=== PATIENT | male | born 1985 | race Caucasian/White ===

== ENCOUNTER 2021-06-08 16:59 | Emergency (ER) | payer OTHER, SELFPAY ==
[2021-06-08] VITALS (14 sets, daily range): BP systolic 98–183; BP diastolic 53–85; PULSE 73–111; RESP 15–25; TEMP 36.7–36.8; O2SAT 96–100
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
[2021-06-08] MEDS: SODIUM CHLORIDE 0.9% IV 1,000 ML 999 ML (18:35)
[2021-06-08] MEDS: SODIUM CHLORIDE 0.9% IV 1,000 ML 999 ML IV CONT ×2 (19:34→22:09)
[2021-06-08] MEDS: TETANUS,DIPHTHERIA,AC PERTUSSIS ADULT (0.5 ML) BOOSTRIX IM (19:36)
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
--- NOTE | 2021-06-09 | PC.NURSE ---
[facility], pt tolerates well.
--- NOTE | 2021-06-09 00:50 | PC.NURSE ---
Attempt made to contact pt older sister Yesenia ([phone]) and mother (listed as person to notify) unsuccessful.
[2021-06-09 01:20] VITALS: BP 108/80; PULSE 102; RESP 18; O2SAT 100
== END 2021-06-09 01:45 | disposition home or self-care (01) ==
PROVIDERS: Emergency Provider General Practice
DX: S02.31XA Fracture of orbital floor, right side, initial encounter for closed fracture (principal); Z23 Encounter for immunization; Y04.2XXA Assault by strike against or bumped into by another person, initial encounter; F17.210 Nicotine dependence, cigarettes, uncomplicated
CPT/HCPCS: 70450; 70486; 71046; 72125; 90471; 90715; 96360; 96361; 99284; J7030

== ENCOUNTER 2023-04-11 22:10 | Emergency (ER) | payer OTHER, SELFPAY ==
[2023-04-11] VITALS (7 sets, daily range): BP systolic 123–149; BP diastolic 83–96; PULSE 78–101; RESP 13–24; TEMP 36.7; O2SAT 96–99
--- NOTE | 2023-04-11 23:00 | PC.NURSE ---
Assumed care of pt. at this time. Report from SESAR Smith
--- NOTE | 2023-04-11 23:15 | PC.NURSE ---
gave report and care to SESAR Diaz. all questions answered.
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
[2023-04-12] MEDS: SODIUM CHLORIDE 0.9% IV 1,000 ML 999 ML IV CONT ×2 (00:25→02:09)
[2023-04-12 00:34] LABS: Basophils Absolute Auto 0.1 K/mm3 (0.0-0.1); Basophils Percent Auto 1.3 % (0.2-1.2); Eosinophils Absolute Auto 0.1 K/mm3 (0-0.3); Eosinophils Percent Auto 2.4 % (0-4.4); Hematocrit 39.7 % (42.0-52.0); Hemoglobin 13.6 g/dL (14.0-18.0); Immature Granulocyte Absolute 0.01 K/mm3 (0.00-0.031); Immature Granulocyte Percent A 0.3 % (0-0.5); Lymphocytes Absolute Auto 1.52 K/mm3 (0.9-3.2); Lymphocytes Percent Auto 40.8 % (18.3-44.2); Mean Corpuscular HGB Conc 34.3 g/dl (32-36); Mean Corpuscular Hemoglobin 34.3 pg (26-34); Mean Platelet Volume 8.8 fl (7.4-10.4); Monocytes Absolute Auto 0.6 K/mm3 (0.1-0.6); Monocytes Percent Auto 16.4 % (2.6-8.5); Neutrophils Absolute Auto 1.5 K/mm3 (1.3-6.7); Neutrophils Percent Auto 38.8 % (45.5-73.1); Platelet Count Result 176 k/mm3 (150-375); Red Blood Count 3.97 M/mm3 (4.6-6.20); White Blood Count 3.7 K/mm3 (4.5-10.0)
[2023-04-12 00:41] LABS: Appearance Urine Clear (Clear); Bacteria Urine None Seen /hpf; Bilirubin Urine Negative (Negative); Blood Urine Negative (Negative); Color Urine Yellow (Yellow); Glucose Urine UA Negative (Negative); Ketones Urine Negative (Negative); Leukocyte Esterase Ur Negative LEU/UL (Negative); Nitrate Urine Negative (Negative); Non Pathogenic Casts 0-2; Protein Urine Trace mg/dL (Negative); RBC Urine 0-2 /hpf (0-2); Specific Grav Ur 1.009 (1.001-1.035); Squamous Epithelial Cell Urine None seen /hpf (Few); Urobilinogen Urine 0.2 mg/dL (<2.0); WBC Urine 0-5 /hpf
[2023-04-12 00:42] LABS: Add Urine Microscopic? YES
[2023-04-12 00:45] LABS: Alanine Aminotransferase 75 U/L (6-50); Albumin Level 3.8 g/dL (3.5-5.1); Alkaline Phosphatase 96 U/L (38-126); Anion Gap 13 mmol/L (8-16); Aspartate Amino Transferase 171 U/L (17-59); Bilirubin,Total 0.5 mg/dL (0.2-1.3); Blood Urea Nitrogen 6 mg/dL (9-20); Calcium 8.3 mg/dL (8.4-10.2); Carbon Dioxide 29 mmol/L (22-30); Chloride 103 mmol/L (98-107); Estimated CRCL calculation 123 ml/min; Estimated Glomerular Filt Rate > 60; Glucose 92 mg/dL (65-110); Potassium 3.8 mmol/L (3.4-5.0); Sodium 145 mmol/L (137-145)
[2023-04-12 00:51] LABS: Amphetamine Screen Urine Negative (Negative); Barbiturate Screen Urine Negative (Negative); Benzodiazepines Screen Urine Negative (Negative); Cannabinoid Screen Urine Positive (Negative); Cocaine Screen Urine Positive (Negative); Methadone Screen Urine Negative (Negative); Opiate Screen Urine Negative (Negative); Phencyclidine Screen Urine Negative (Negative)
--- NOTE | 2023-04-12 00:57 | ECG_ITS ---
Measurements Intervals Rohwer Rate: 74 P: 72 NV: 150 QRS: 79 QRSD: 96 T: 67 QT: 407 QTc: 453 Interpretive Statements SINUS RHYTHM BASELINE ARTIFACT- V3 NORMAL ECG COMPARED TO ECG 07/19/2018 16:19:44 SINUS RHYTHM NOW PRESENT Electronically Signed On 04-12-2023 7:31:35 METAL SORTER by Mitul Herndon D.O.
[2023-04-12 01:09] LABS: Ethanol 452 mg/dL (<10)
[2023-04-12 02:00] VITALS: BP 115/75; PULSE 96; RESP 19; O2SAT 97
[2023-04-12] MEDS: LORazepam INJ (*CRX) 2 MG/ML VIAL 0.5 MG IV PUSH (02:08)
[2023-04-12 03:00] VITALS: PULSE 96; RESP 14
[2023-04-12 04:00] VITALS: PULSE 86; RESP 20
--- NOTE | 2023-04-12 07:10 | PC.NURSE ---
pt. alert and oriented x4. able to ambulate with steady gait. pt. attempting to call for a ride.
== END 2023-04-12 07:20 | disposition home or self-care (01) ==
PROVIDERS: Emergency Provider Physician Assistant
DX: F10.229 Alcohol dependence with intoxication, unspecified (principal); F17.210 Nicotine dependence, cigarettes, uncomplicated; Y90.8 Blood alcohol level of 240 mg/100 ml or more; Z59.02 Unsheltered homelessness
CPT/HCPCS: 36415; 80053; 80307; 81001; 85025; 93005; 96360; 96361; 96374; 99284; J2060; J7030

== ENCOUNTER 2023-04-12 09:40 | Emergency (ER) | payer OTHER, SELFPAY ==
[2023-04-12 10:01] VITALS: BP 140/88; PULSE 102; RESP 16; TEMP 36.2; O2SAT 100
--- NOTE | 2023-04-12 13:36 | ED.ALCOHOL ---
HPI - Alcohol General Chief Complaint: Alcohol Stated Complaint: wants detox Time Seen by Provider: 04/12/23 13:35 Source: patient Mode of arrival: ambulatory Limitations: no limitations History of Present Illness HPI narrative: PATIENT GOT DISCHARGE IF YOU HOURS AGO FOR MY OUR FACILITY WITH ALCOHOL INTOXICATION TO FOLLOW UP WITH DETOX CENTER. PATIENT WENT TO THE ALCOHOL STORE, AND DRINK A LOT OF IT THEN CALL 911 TO COME BACK TO THE EMERGENCY ROOM. PATIENT IS TELLING ME THAT HE IS HOMELESS HE HAD NOWHERE TO GO. AND HE CANNOT STOP DRINKING. HE DENIES FEVER, CHILLS, NAUSEA, VOMITING, HEADACHE OR TRAUMA. Related Data Allergies Allergy/AdvReac Type Severity Reaction Status Date / Time No Known Allergies Allergy Unverified 10/03/18 15:44 Review of Systems Review of Systems: All systems reviewed & are unremarkable except as noted in HPI and below PMFSH Past Medical History Medical History Alcohol abuse Anxiety Seizure Social History Social History Smoking packs per day: 0.5 Smoking cigarettes per day: 10.0 Smoking status: Current every day smoker Alcohol intake: current Exam Narrative: GENERAL APPEARANCE: WELL-DEVELOPED, WELL-NOURISHED SKIN: NORMAL COLOR HEAD: NORMOCEPHALIC, NONTRAUMATIC EYES: CLEAR CONJUNCTIVA ENT: OROPHARYNX NORMAL, EARS NORMAL, NOSE NORMAL NECK: SUPPLE, NONTENDER CHEST AND RESPIRATORY: AIRWAY PATENT, NO RESPIRATORY DISTRESS, NO ACCESSORY MUSCLE USE HEART: REGULAR RATE/RHYTHM ABDOMEN: SOFT, NONTENDER, NO ORGANOMEGALY, QUIET BOWEL SOUNDS VASCULAR: NORMAL PERIPHERAL PULSES, NORMAL CAPILLARY REFILL. MUSCULOSKELETAL: NORMAL RANGE OF MOTION, NONTENDER BACK NEUROLOGIC: ALERT AND ORIENTED ?3, DEPRESSED Course Vital Signs Vital signs: Vital Signs Temperature 36.2 C L 04/12/23 10:01 Pulse Rate 102 H 04/12/23 10:01 Respiratory Rate 16 04/12/23 10:01 Blood Pressure 140/88 04/12/23 10:01 Pulse Oximetry 100 04/12/23 10:01 Temperature 36.2 C L 04/12/23 10:01 Pulse Rate 83 04/12/23 14:11 Respiratory Rate 20 04/12/23 14:11 Blood Pressure 140/88 04/12/23 10:01 Pulse Oximetry 100 04/12/23 14:11 MDM - Alcohol MDM Narrative Medical decision making narrative: PATIENT CAME BACK TO THE EMERGENCY ROOM AFTER GOT DISCHARGED EARLY WITH ALCOHOL INTOXICATION. VITAL SIGNS ON ARRIVAL STABLE, PHYSICAL EXAMINATION SHOWED THAT THE PATIENT IS DEPRESSED, AWAKE ALERT ORIENTED X4, ANSWER QUESTION APPROPRIATELY, ALCOHOL LEVEL IS 438 COMPARED TO 452 EARLIER TODAY. PATIENT IS HOMELESS, JAILER cONSULT, PATIENT WILL BE DISCHARGED TO ALCOHOL DETOX CENTER. Differential Diagnosis Differential diagnosis: Likely other (ALCOHOL DEPENDENT, DEPRESSION) Medical Records Attestation: I reviewed the patient's medical records. Lab Data Attestation: I reviewed the patient's lab results. Labs: Lab Results 04/12/23 Range/Units 14:13 Ethyl Alcohol 438 H* (<10) mg/dL Critical Care Time Critical Care Time Critical Care Time: Yes Total Critical Care Time: 30 Discharge Plan Discharge Clinical Impression: Alcohol intoxication Patient Disposition: Other Condition: Guarded Prognosis Instructions: Alcohol Intoxication (ED), Alcohol Dependence (ED) Additional Instructions: DISCHARGED TO ALCOHOL DETOX CENTER. Prescriptions: No Action amoxicillin 875 mg tablet 875 mg PO Q12H Qty: 14 0RF ondansetron 4 mg tablet,disintegrating 4 mg PO Q6H PRN (Reason: nausea and vomiting) Qty: 10 0RF hydrocodone-acetaminophen 5-325 mg tablet 1 tablet PO Q6H PRN (R
[2023-04-12 14:11] VITALS: PULSE 83; RESP 20; O2SAT 100
[2023-04-12] MEDS: SODIUM CHLORIDE 0.9% IV 1,000 ML 999 ML IV CONT (14:12)
--- NOTE | 2023-04-12 14:44 | PC.NURSE ---
[facility] recovery representatives at bedside with patient. Del silver recovery operator, states he will be providing patient with transportation upon discharge. He can be reached at [phone].
[2023-04-12 14:54] LABS: Ethanol 438 mg/dL (<10)
[2023-04-12 15:37] VITALS: BP 112/74; PULSE 84; RESP 18; O2SAT 99
== END 2023-04-12 15:38 | disposition home or self-care (01) ==
PROVIDERS: Emergency Provider Emergency Medicine
DX: F10.129 Alcohol abuse with intoxication, unspecified (principal); F17.210 Nicotine dependence, cigarettes, uncomplicated
CPT/HCPCS: 36415; 80307; 96360; 99283; J7030